=== PATIENT | female | born 1955 | race African-American/Black ===

== ENCOUNTER 2016-11-24 17:13 | Inpatient (IN) ==
[2016-11-24] MEDS ORDERED: NITROGLYCERIN 2% OINT 1 INCH/GM PACK TOP STA (17:28)
[2016-11-24] MEDS ORDERED: methylPREDNISolone SOD SUC 40 MG/1 ML VIAL IV STA (17:28)
[2016-11-24] MEDS ORDERED: ALBUTEROL 2.5 MG/3 ML NEB RESP TX STA (17:28)
[2016-11-24] MEDS ORDERED: ALBUTEROL/IPRATROPIUM 3 ML NEB RESP TX STA (17:28)
[2016-11-24] MEDS ORDERED: hydrALAZINE 20 MG/1 ML VIAL IV STA (17:30)
[2016-11-24 17:44] LABS: Basophils % 0.5 % (0.0-0.8); Eosinophils % 0.5 % (0.00-10.9); Hematocrit 50.3 VOL% (35.7-47.0); Hemoglobin 17.4 GM/DL (12.0-16.0); Immature Granulocytes % 0.2 %; Immature Granulocytes Absolute 0.01 #; Lymphocytes # 3.6 10*3/uL (1.4-4.0); Lymphocytes % 58.2 % (21.3-54.2); Mean Corpuscular HGB Conc 34.6 GM/DL (32-36); Mean Corpuscular Hemoglobin 34 PG (27-34); Mean Corpuscular Volume 97.5 FL (87-102); Mean Platelet Volume 11.7 FL (9.6-12.0); Monocytes # 0.5 10*3/uL (0.11-0.8); Neutrophils % 32.6 % (38.7-73.9); Platelet Count 207 T/CUMM (130-400); Red Blood Count 5.16 MC/CUMM (3.8-5.5); Red Cell Distribution Width 15.3 % (9.3-17.3); White Blood Count 6.3 T/CUMM (4-12)
[2016-11-24] MEDS ORDERED: methylPREDNISolone SOD SUC 125 MG/2 ML VIAL ONE (17:47)
[2016-11-24] MEDS ORDERED: NITROGLYCERIN 2% OINT 1 INCH/GM PACK TOP ONE (17:47)
[2016-11-24] MEDS ORDERED: hydrALAZINE 20 MG/1 ML VIAL ONE (17:47)
[2016-11-24 18:05] LABS: Lymphocytes 64 % (20-55); Platelet Estimate Adequate; Poikilocytosis Slight; Segmented Neutrophils 32 % (50-85); Target Cells Slight; Total Cells Counted 100
[2016-11-24 18:06] LABS: Atypical Lymphocytes Few
[2016-11-24 18:16] LABS: Osmolality,Calculated 278.4 MOS/KG (273-304); Potassium 3.9 MMOL/L (3.5-5.1)
--- NOTE | 2016-11-24 18:19 | XRay Report ---
Exam: XR chest 1V portable Indication: Cardiomegaly Shortness of breath Comparison study: Prior chest radiograph 04/08/2013 Findings: Cardiac silhouette is enlarged, similar prior. Mediastinal contours appear similar with mild prominence of the perihilar regions bilaterally which may represent atelectasis/scarring or prominent vasculature. There is no focal consolidation, pneumothorax or pleural effusion identified. Impression: Similar mild cardiomegaly and perihilar interstitial prominence may represent atelectasis/scarring. Underlying infiltrates or mild interstitial edema are not excluded. PROCEDURE INTERPRETED AT [facility] DEPARTMENT OF RADIOLOGY Final Report Signed by: Arnold Nathan
[2016-11-24 18:20] LABS: Troponin I Only 0.17 NG/ML (0.00-0.045)
[2016-11-24] MEDS ORDERED: FUROSEMIDE 40 MG/4 ML VIAL IV STA (18:49)
[2016-11-24] MEDS ORDERED: FUROSEMIDE 40 MG/4 ML VIAL ONE (18:59)
[2016-11-24 19:17] LABS: Apearance,Urine Slightly Hazy (Clear); Bacteria,Urine Occasional /HPF (Few); Bilirubin,Urine Small mg/dL (Negative); Blood, Urine Negative (Negative); Glucose,Urine (UA) Negative (Negative); Hyaline Casts,Urine 5 /LPF (0-3); Ketones,Urine 5 mg/dL (Negative); Mucus,Urine Few /LPF (Occasional); Nitrite,Urine Negative (Negative); Protein,Urine 100 MG/DL; RBC,Urine 1 /HPF (0-4); Squamous Epithelial Cell,Urine Occasional /HPF (0-10); Urine Color Amber (Yellow); Urine Specific Gravity 1.032 (1.001-1.035); WBC,Urine 1 /HPF (0-6)
[2016-11-24] MEDS ORDERED: ASPIRIN 325 MG TABLET PO STA (19:17)
[2016-11-24] MEDS ORDERED: ENOXAPARIN 80 MG/0.8 ML SYRINGE SUBCUT STA (19:17)
--- NOTE | 2016-11-24 19:49 | Emergency Department Note ---
IMarcial Brooke, am scribing for, and in the presence of, Bob Goodrich MD 17:30. IJoleen Kevin Lee, MD, personally performed the services described in this documentation, ascribed by Katrin Ceja in my presence, and it is both accurate and complete 917 . Arrival - Arrival Chief Complaint: Upper Respiratory Stated Complaint: cold,chest, sinus with fever ED Nursing Triage Note: c/o cough and congestion onset 4 days ago. sometimes productive Mode of Arrival: Ambulatory Limitations: No Limitations Source: Patient, RN Notes Reviewed Time Seen by Provider: 11/24/16 17:23 - History of Present Illness HPI Narrative: Patient is a 61 year old female who presents to the ED with c/o cough, congestion, and shortness of breath. Patient says these symptoms started five days ago but that it worsened four days ago. Patient's cough is productive. She says she has had fever. Her temperature during triage was 96.3. She says she has been nauseated and gagging but has not vomited. Patient also complains of having dysuria and says she thinks she has a urinary tract infection. Patient has PMHx of HTN, asthma, and arthritis. She is a smoker. Onset (ago): day(s) (5) Allergies/Adverse Reactions: Allergies Allergy/AdvReac Type Severity Reaction Status Date / Time No Known Allergies Allergy Unverified 11/06/14 11:20 Home Medications: Home Medications Medication Instructions Recorded Confirmed Type Budesonide/Formoterol Fumarate 1 inhaler INH BID 11/06/14 11/24/16 History [Symbicort 80-4.5 Mcg Inhaler] Montelukast Tab [Singulair Tab] 10 mg PO BEDTIME 11/06/14 11/24/16 History Albuterol Sulfate [Albuterol Neb] 2.5 mg INH BID 11/24/16 11/24/16 History Linaclotide [Linzess] 145 mcg PO DAILY PRN 11/24/16 11/24/16 History Unknown Neb In Yellow Box 0 ml INH BID 11/24/16 11/24/16 History Review of System - Review of System 12 point system: reviewed and no additional remarkable complaints except as stated - Review of System Constitutional: Present: fever Head/Ears/Nose/Throat: Present: other (congestion) Respiratory: Present: cough (shortness of breath), other (shortness of breaht). Absent: respiratory distress Gastrointestinal: Present: nausea. Absent: vomiting (gagging) Genitourinary female: Present: dysuria Skin: Absent: rash Medical,Surgical,& Family Hx - Medical History Respiratory: History of: Asthma Gastrointestinal: History of: GI Problems (constipation) Musculoskeletal: History of: Musculoskeletal Problems (arthritis) - Social History Smoking Status: Current every day smoker Frequency of Alcohol Use: None Type of Drug Use: None Exam Vital Signs: Vital Signs Temperature 96.3 F L 11/24/16 17:18 Pulse Rate 80 11/24/16 18:45 Respiratory Rate 17 11/24/16 18:45 Blood Pressure 150/95 11/24/16 18:45 O2 Sat by Pulse Oximetry 93 L 11/24/16 18:45 - General General appearance: alert, in no apparent distress - Head Head exam: Present: atraumatic, normocephalic - Eye Eye exam: Present: normal appearance, PERRL, EOMI - ENT ENT exam: Present: normal exam - Neck Neck exam: Present: normal inspection - Chest Chest inspection: Present: normal inspection, symmetric chest wall rise - Respiratory Respiratory exam: Present: rhonchi, wheezes - Cardiovascular Cardiovascular exam: Present: regular rate, normal rhythm, normal heart sounds - Abdominal Exam Abdominal exam: Present: soft, normal bowel sounds. Absent: distention, tenderness - Extremities Exam Extremities exam: Present: normal inspection - Back Exam Back exam: Present: normal inspection - Neurological Exam Neurological exam: Present: alert, oriented X3 - Psychiatric Psychiatric exam: Present: normal affect, normal mood - Skin Skin exam: Present: warm, dry, intact, normal color Course Course Narrative: will admit to hospitalist for further eval and treatment of probable htn urgency vs underlying COPD exacerbation with elevated cardiac enzymes Results - Labs CBC & BMP: 11/24/16 17:33 11/24/16 17:33 Lab Results: I have reviewed the patients labs Labs: Laboratory Tests 11/24/16 17:33 WBC 6.3 RBC 5.16 Hgb 17.4 H Hct 50.3 H MCV 97.5 MCH 34 MCHC 34.6 RDW 15.3 Plt Count 207 MPV 11.7 Neut % (Auto) 32.6 L Lymph % (Auto) 58.2 H [place] % (Auto) 8.0 Eos % (Auto) 0.5 Baso % (Auto) 0.5 Neut # (Auto) 2.0 Lymph # (Auto) 3.6 [place] # (Auto) 0.5 Eos # (Auto) 0.0 Baso # (Auto) 0.0 Total Counted Pending Immature Gran % 0.2 Nucleated RBC % 0.0 Immature Gran # 0.01 Nucleated RBCs # 0.00 Immature Plt Fraction 0.0 Microbiology 11/24/16 17:56 Throat Group A Streptococcus Rapid Screen - Final Negative for Grp A Strep Ag Laboratory Tests 11/24/16 17:33 Total Counted 100 Segmented Neutrophils 32 L Lymphocytes 64 H Monocytes 4 Atypical Lymphocytes Few Platelet Estimate Adequate Poikilocytosis Slight Target Cells Slight Laboratory Tests 11/24/16 17:33 Sodium 140 Potassium 3.9 Chloride 104 Carbon Dioxide 32 Anion Gap 7.9 BUN 9 Creatinine 0.90 GFR Calculation 91 BUN/Creatinine Ratio 10.00 Glucose 114 H Calculated Osmolality 278.4 Calcium 9.0 Troponin I 0.170 H Microbiology 11/24/16 18:29 Nasal Aspirate Influenza Types A,B Antigen (EUN) - Final Negative for Influenza A Ag Negative for Influenza B Ag Laboratory Tests 11/24/16 17:33 B-Natriuretic Peptide 12 Laboratory Tests 11/24/16 18:29 Urine Color Clemencia Urine Appearance Slightly hazy Urine pH 5.0 Ur Specific [place] 1.032 Urine Protein 100 Urine Glucose (UA) Negative Urine Ketones 5 Urine Blood Negative Urine Nitrate Negative Urine Bilirubin Small H Urine Urobilinogen 2.0 H Urine Leukocytes Negative Urine RBC 1 Urine WBC 1 Ur Squamous Epith Cells Occasional Urine Bacteria Occasional Hyaline Casts 5 Urine Mucus Few Ur Culture Indicated? Not indicated - Diagnostic Findings Procedure: Chest x-ray: report reviewed by me (Similar mild cardiomegaly and perihilar interstitial prominence may represent atelectasis/scarring. Underlying infiltrates or mild interstitial edema are not excluded.) Disposition Clinical Impression: NSTEMI (non-ST elevated myocardial infarction), Hypertensive urgency, COPD ( chronic obstructive pulmonary disease) Case discussed with: patient Disposition: Still a Patient Condition: Guarded
--- NOTE | 2016-11-24 19:57 | Hospitalist History & Physical ---
<Sarah Paez - Last Filed: 11/25/16 04:18> Assessment and Plan - Time spent with patient Time spent with patient: Greater than 30 minutes (1) COPD with exacerbation Status: Acute Assessment and plan: Admit to hospitalist services. Solumedrol 125 mg IV given in ED. Continue with solumedrol 60 mg IV Q8 hours. Levoquin 750 mg IV Q24 hours. DuoNebs Q4 hours. Continue home dose of Singulair. O2 per unit protocol. Repeat CBC in am. Current Visit: Yes (2) Sepsis Status: Acute Assessment and plan: Initially in ED, temp 96.3, HR 94, and RR 22 with possible pulmonary infection on CXR. Questionable if there is a cardiac involvement with some amount of CHF. BP is stable. Hold IV fluids for now. Antibiotics as above for COPD exacerbation. Blood cultures drawn in ED, follow. Repeat CBC in am. Current Visit: Yes (3) SOB (shortness of breath) Status: Acute Assessment and plan: As above for COPD exacerbation. Current Visit: Yes (4) Elevated troponin I level Status: Acute Assessment and plan: Initial troponin in ED was 0.170. This is likely due to severely elevated BP on presentation of 196/113. BNP was 12. Still there is concern for cardiac involvement as there appeared to be moderate JVD and ERP notes NSTEMI in his clinical impression. Obtain serial troponins, follow. Repeat BNP, BMP and Mag in am. Control BP. Place on telemetry. Echo. Lasix 40 mg IV x 1 given in ED. No additional lasix for now until confirmation for need. Daily weight Strict I/Os. Cardiac Diet. Cardiology consult. Current Visit: Yes (5) Hypertension Status: Acute Assessment and plan: Patient reports that she was taken off all BP meds 4-5 years ago for recurring episodes of hypotension. Initial BP in the ED was 196/113. Hydralazine 10 mg IV was given in ED. Continue Hydralazine 10 mg IV Q6 PRN for BP>140/90. Monitor. Current Visit: Yes (6) DVT prophylaxis Status: Acute Assessment and plan: Lovenox 40 mg SQ daily. Current Visit: Yes History of Present Illness Chief complaint: SOB, congestion, cough History of present illness: Ms. Muhammad is a 61 year old female with a past medical history of asthma, COPD, HTN, and chronic constipation who presented to the ED today with complaints of shortness of breath, head and chest congestion, wheezing, coughing, headache, throat discomfort and subjective feelings of fever x 7 days that has worsened over the last 4 days. She also complains of nausea and sweating but denies chest pain, and chills. She is a 1/2 ppd smoker for about 40 years. In the ED, her initial BP was 196/113 and her O2 sats were 92% on RA. Her labs were unremarkable except for a slight bump in her troponin to 0.170. Her BNP was 12. CXR showed mild cardiomegaly consistent with previous CXR and perihilar interstitial prominence that may represent atelectasis/scarring. Underlying infiltrates or mild interstitial edema not excluded. Currently she is sitting up on side of bed, awake, alert and oriented and has had some relief of symptoms with the 2 breathing treatments and lasix received in the ED. Hospitalist services were consulted, and the patient will be admitted to observation for further evaluation and treatment. Home Medications Medication Instructions Recorded Confirmed Type Budesonide/Formoterol Fumarate 1 inhaler INH BID 11/06/14 11/24/16 History [Symbicort 80-4.5 Mcg Inhaler] Montelukast Tab [Singulair Tab] 10 mg PO BEDTIME 11/06/14 11/24/16 History Albuterol Sulfate [Albuterol Neb] 2.5 mg INH BID 11/24/16 11/24/16 History Linaclotide [Linzess] 145 mcg PO DAILY PRN 11/24/16 11/24/16 History Unknown Neb In Yellow Box 0 ml INH BID 11/24/16 11/24/16 History Allergies Allergy/AdvReac Type Severity Reaction Status Date / Time No Known Allergies Allergy Unverified 11/06/14 11:20 Medical,Surgical,& Family Hx - Medical History Cardio: History of: Hypertension No history of: CHF, CO, Valvular Heart Disease Psychological: No history of: Anxiety Disorders, Depression Neurology: No history of: Cerebrovascular Accident, Seizures, TIA HEENT: No history of: Ear Problem, Eye Problem Endocrine: No history of: Diabetes Mellitus (IDDM), Diabetes Mellitus (NIDDM), Thyroid Disorder Rheumatology: No history of;: Rheumatoid Arthritis Respiratory: History of: Asthma, COPD Renal: No history of: Renal Problems Genitourinary: No history of: Kidney Stones, Recurring Urinary Tract Infections, Problems Gastrointestinal: History of: GI Problems (constipation) No history of: GERD Musculoskeletal: History of: Musculoskeletal Problems (arthritis; ventral hernia ) No history of: Back/Neck Problems Hematology: No history of: Anemia, Bleeding Problems, Clotting Problems, Sickle Cell Disease Reproductive: History of: Ovarian Cysts, Reproductive Problems (fibroid tumors) Other: No history of: Cancer - Surgical History Cardiac Surgeries: Patient Denies: Cardiac Catheterization, Cardiac Surgery HEENT Surgeries: Patient denies: Eye Surgery, Thyroid Surgery, Tonsilectomy & Adenoidectomy Abdominal Surgeries: Patient denies: Cholecystectomy, Hernia Repair Reproductive Surgeries: Surgical HX of;: Gynecologic Surgery (fibroid tumor removal and ovarian cyst removal) Orthopedic Surgeries: Patient denies;: Orthopedic Surgery - Family History Family History: Reports;: Family Heart Disease, Family Hypertension - Social History Smoking Status: Current every day smoker (1/2 ppd) Have you smoked in the last 12 months: Yes Time spent discussing smoking cessation with patient: 3 to 10 minutes (3 minutes were spent discussing smoking cessation with the patient.) Frequency of Alcohol Use: Rarely Type of Drug Use: None Marital Status: Lives With:: Alone Functional capacity: independent ambulation - Constitutional Constitutional: Present: fever(s). Absent: chills, lethargy, malaise - EENT Eyes: Absent: blurry vision, diplopia, loss of vision Ears: Absent: decreased hearing, ear discharge Nose, mouth and throat: Present: headache(s), nasal congestion, sore throat, other (Hoarseness) - Cardiovascular Cardiovascular: Present: diaphoresis, dyspnea, dyspnea on exertion, orthopnea. Absent: chest pain at rest, chest pain with activity, edema, palpitations - Respiratory Respiratory: Present: cough, dyspnea, dyspnea on exertion, wheezing - Gastrointestinal Gastrointestinal: Present: constipation, nausea. Absent: abdominal pain, diarrhea, vomiting - Genitourinary Genitourinary: Absent: dysuria, urinary frequency - Musculoskeletal Musculoskeletal: Absent: arthralgias, joint swelling, muscle weakness, myalgias - Neurological Neurological: Absent: confusion, dizziness, numbness, paresthesias, syncope - Psychiatric Psychiatric: Absent: anxiety, confusion, depression - Endocrine Endocrine: Absent: cold intolerance, polydipsia, polyphagia, polyuria - Hematologic/Lymphatic Hematologic/Lymphatic: Absent: easy bleeding, easy bruising Exam - Constitutional Vitals: Period Temp Pulse Resp BP Sys/Gastelum Pulse Ox Last 24 Hr 96.3 F-96.3 F 75-94 15- 125-196/90-113 92-99 Exam: Constitutional System: Afebrile, but low temp. Awake, alert and oriented x 3. Mild distress. No tremulousness. Head: Normocephalic, atraumatic. Ears, Nose and Throat System: No pain or tenderness. No epistaxis or discharge Eyes System: Pupils equal, round, and reactive. Extraocular muscles intact. Neck: Supple, without adenopathy, Moderate jugular venous distention present. No thyromegaly, neck mass, or prior surgery apparent. Respiratory System: Wheezing, rhonchi and cough noted. Cardiovascular System: Heart with regular rate and rhythm. No murmur. GI System: Abdomen soft, nontender. Normo active bowel sounds present. Musculoskeletal System: Limbs with no pedal edema. Full distal pulses. Normal capillary refill. Neurological System: No discernable sensory deficit. No aphasia Psychiatric System: Conversation is rational Results - Labs CBC & BMP: 11/25/16 02:09 11/25/16 02:10 Lab Results: I have reviewed the past 24 hour labs <Neeraj Shore - Last Filed: 11/25/16 05:43> Assessment and Plan (1) COPD with exacerbation Status: Acute Assessment and plan: Addendum: Neeraj Shore MD: I saw and examined the patient in conjunction with nurse practitioner Sarah Bose. The patient is being admitted mainly for COPD exacerbation. On exam she does have significant wheezing. She has a history of COPD and uses inhalers, nebulizers daily. She has been started on standard COPD exacerbation regimen. Troponin is mildly elevated and cardiology has been consulted. 2D echo has been ordered. Her O2 saturation dropped to 87 while we were examining her after she had returned from the restroom. Her sat at rest was stable on 2 L. Current Visit: Yes History of Present Illness History of present illness: Ms. Muhammad is a 61 year old female Exam - Constitutional Vitals: Period Temp Pulse Resp BP Sys/Gastelum Pulse Ox Last 24 Hr 96.3 F-98.1 F 70-96 15-22 125-196/76-113 88-99 Results - Labs CBC & BMP: 11/25/16 02:09 11/25/16 02:10
[2016-11-24] MEDS ORDERED: ENOXAPARIN 80 MG/0.8 ML SYRINGE SUBCUT ONE (20:06)
[2016-11-24] MEDS ORDERED: ASPIRIN 325 MG TABLET ONE (20:07)
[2016-11-24] MEDS ORDERED: BISACODYL 5 MG TABLET PO PRN (21:34)
[2016-11-24] MEDS ORDERED: ONDANSETRON 4 MG/2 ML VIAL IV PRN (21:34)
[2016-11-24] MEDS ORDERED: ACETAMINOPHEN 325 MG TABLET PO PRN (21:34)
[2016-11-25 02:24] LABS: Basophils % 0.3 % (0.0-0.8); Hematocrit 45.4 VOL% (35.7-47.0); Hemoglobin 15.9 GM/DL (12.0-16.0); Immature Granulocytes % 0.3 %; Immature Granulocytes Absolute 0.01 #; Lymphocytes # 0.7 10*3/uL (1.4-4.0); Lymphocytes % 18.3 % (21.3-54.2); Mean Corpuscular Hemoglobin 34 PG (27-34); Mean Platelet Volume 11.8 FL (9.6-12.0); Neutrophils # 3.1 10*3/uL (1.4-7.4); Neutrophils % 80.1 % (38.7-73.9); Platelet Count 192 T/CUMM (130-400); Red Blood Count 4.73 MC/CUMM (3.8-5.5); Red Cell Distribution Width 14.9 % (9.3-17.3); White Blood Count 3.9 T/CUMM (4-12)
[2016-11-25 03:05] LABS: Magnesium 1.6 MG/DL (1.8-2.4); Osmolality,Calculated 287.3 MOS/KG (273-304); Potassium 3.3 MMOL/L (3.5-5.1); Risk Ratio 3.39; Thyroid Stimulating Hormone 0.261 uIU/ml (0.358-3.74)
[2016-11-25] MEDS ORDERED: LINACLOTIDE 145 MCG CAPSULE PO PRN (04:22)
[2016-11-25] MEDS ORDERED: hydrALAZINE 20 MG/1 ML VIAL IV PRN (04:32)
[2016-11-25] MEDS ORDERED: LEVOFLOXACIN INJ 750 MG in PREMIX 1 EACH IV SCH (05:00)
[2016-11-25 05:30] LABS: Band Neutrophils 1 % (0-10); Giant Platelets Few; Hypochromasia 1+; Lymphocytes 14 % (20-55); Ovalocytes Slight; Platelet Estimate Adequate; Segmented Neutrophils 83 % (50-85); Total Cells Counted 100
[2016-11-25] MEDS: methylPREDNISolone SOD SUC 125 MG/2 ML VIAL IV SCH ×2 (05:44→13:19)
[2016-11-25 06:18] LABS: Calcium 8.9 MG/DL (8.5-10.1); Magnesium 1.8 MG/DL (1.8-2.4); Osmolality,Calculated 278.5 MOS/KG (273-304); Potassium 3.3 MMOL/L (3.5-5.1)
[2016-11-25] MEDS: ALBUTEROL/IPRATROPIUM 3 ML NEB RESP TX SCH ×2 (07:05→11:00)
--- NOTE | 2016-11-25 08:52 | EKG Report ---
Stationary ECG Study [facility] Test Date: 11/25/2016 8:43:47 AM Pat Name: BAHMAN GUTIERREZ Department: Room: 287 Gender: F Habilitation Specialist: YANI : [id number] Requested by: Bob Canada Order Number: [id number] Reading MD: DARION WYATT Intervals [place] Rate: 67 P: 62 VT: 215 QRS: -23 QRSD: 84 T: 2 QT: 426 QTc: 441 Interpretive Statements SINUS RHYTHM WITH PROLONGED VT INTERVAL BORDERLINE LEFT AXIS DEVIATION Electronically Signed On 11-25-16 18:52:18 CDT by DARION WYATT [email or web address]
[2016-11-25] MEDS ORDERED: BUDESONIDE/FORMOTEROL 80-4.5 INHALER 6.9 GM INH SCH (09:00)
[2016-11-25] MEDS ORDERED: PANTOPRAZOLE 40 MG TABLET PO SCH (09:00)
--- NOTE | 2016-11-25 09:50 | Cardiology Consult Note ---
Assessment and Plan - Time spent with patient Time spent with patient: Greater than 30 minutes (1) Acute exacerbation of COPD with asthma Status: Acute Assessment and plan: See plan of care listed below. Current Visit: Yes (2) Elevated troponin I level Status: Acute Assessment and plan: See plan of care listed below. Current Visit: Yes (3) Hypertension Status: Chronic Assessment and plan: See plan of care listed below. Current Visit: Yes (4) SOB (shortness of breath) Status: Acute Assessment and plan: See plan of care listed below. Current Visit: Yes (5) Tobacco abuse Status: Chronic Assessment and plan: See plan of care listed below. 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 Galvan PCP: Dr. Sherwin Sabillon Ms. Muhammad is a 61 year old female without known history of coronary artery disease, not routinely followed by cardiology. Patient has cardiac risk factors significant for hypertension, advanced age, current everyday smoker and sedentary lifestyle. Patient has a past medical history of asthma and COPD. She reports that she had a cardiac stress test performed around 2005. She cannot remember if this was performed at our facility or at [facility], [place]. Unable to locate this report in our EMR. Patient has never undergone cardiac catheterization. Patient presented to [facility] yesterday evening with complaints of sinus drainage, chest congestion and fever. Patient reports that she has been feeling under the weather for the past week. She confirms cough, fevers/chills, shortness of breath, diaphoresis, malaise, fatigue and wheezing. She denies any associated chest pain, heaviness or tightness. She does have a history of COPD and has chronic dyspnea. She reports that she attempted several breathing treatments at home. However, her condition did not improve. Yesterday afternoon she continued to wheeze and felt that she needs to be further evaluated in the emergency department as she was not getting any better. Upon arrival to the emergency department, her troponins were trivial. Again, patient was without complaints of chest pain, heaviness and tightness. Blood pressure upon arrival to ED was 196/113. Patient was admitted to hospital medicine's service. Housed in the telemetry unit. Cardiology was consulted to further evaluate her trivial elevation in troponin. Patient was seen and examined on the telemetry unit. She is feeling better this morning and without complaints. She continues to deny chest pain, heaviness and tightness. Cardiac biomarkers trivial, flat in nature, 0.170, 0.129 and 0.119. EKG benign. Without anginal symptoms. Chest x-ray reveals mild cardiomegaly. Underlying infiltrates could not be excluded. BNP stable. Suspect that trivial troponin rise is related to her underlying acute COPD exacerbation as well as her severely uncontrolled hypertension. Blood pressure 196/113 at admission. At this point, we will optimize patient's blood pressure and treat COPD exacerbation. I have added aspirin to patient's medication regimen. I have also added CPK and CK-MB to her lab draw. Echocardiogram results are pending. These will be reviewed. We can consider further cardiac workup once her acute illnesses improve, if needed. I will further discuss this with Dr. Ashwini Galvan and await her additional recommendations. IMPRESSION AND PLAN 1. TRIVIAL ELEVATION IN TROPONIN - Troponin only minimally elevated. Flat in nature. EKG benign. Without anginal symptoms. Suspect that trivial troponin rise is related to her underlying acute COPD exacerbation (oxygen supply and demand mismatch) as well as her severely uncontrolled hypertension. Blood pressure 196/113 at admission. At this point, we will optimize patient's blood pressure and treat COPD exacerbation. I have added aspirin to patient's medication regimen. I have also added CPK and CK-MB to her lab draw. Echocardiogram results are pending. These will be reviewed. We can consider further cardiac workup once her acute illnesses improve if needed. I will further discuss this with Dr. Ashwini Galvan and await her additional recommendations. 2. ACUTE COPD EXACERBATION - Continue supplemental oxygen, steroids, breathing treatments and antibiotics. 3. HYPERTENSION - I will add Bystolic to patient's medication regimen as this is a cardioselective beta-geovany. This will most likely have no respiratory side effects. Can consider adding MELANIA or ARB if blood pressure remains uncontrolled. 4. TOBACCO ABUSE - Discussed the importance of smoking cessation. 5. SHORTNESS OF BREATH - Suspect that this is related to her acute COPD exacerbation. BNP 18. Echocardiogram has been ordered today. These results will be reviewed. If patient's dyspnea continues after COPD exacerbation resolves can consider further cardiac workup at that time. CC: Scott Garner MD - Home Medications and Allergies Home Medications: Home Medications Medication Instructions Recorded Confirmed Type Budesonide/Formoterol Fumarate 1 inhaler INH BID 11/06/14 11/24/16 History [Symbicort 80-4.5 Mcg Inhaler] Montelukast Tab [Singulair Tab] 10 mg PO BEDTIME 11/06/14 11/24/16 History Albuterol Sulfate [Albuterol Neb] 2.5 mg INH BID 11/24/16 11/24/16 History Linaclotide [Linzess] 145 mcg PO DAILY PRN 11/24/16 11/24/16 History Unknown Neb In Yellow Box 0 ml INH BID 11/24/16 11/24/16 History Allergies/Adverse Reactions: Allergies Allergy/AdvReac Type Severity Reaction Status Date / Time No Known Allergies Allergy Unverified 11/06/14 11:20 - Constitutional Constitutional: Present: as per HPI, chills, fatigue, fever(s), lethargy, malaise, weakness. Absent: frequent falls, headache(s) - Cardiovascular Cardiovascular: Present: as per HPI, diaphoresis, dyspnea, dyspnea on exertion. Absent: chest pain at rest, chest pain with activity, claudication, edema, radiating jaw, neck or arm pain, lightheadedness, orthopnea, palpitations, PND - Respiratory Respiratory: Present: as per HPI, cough, dyspnea, dyspnea on exertion, wheezing , change in phlegm color. Absent: hemoptysis, snoring, pain on inspiration - Gastrointestinal Gastrointestinal: Present: as per HPI. Absent: change in bowel habits, coffee ground emesis, cramping, diarrhea, dyspepsia, dysphagia, heartburn, melena, nausea, vomiting - Neurological Neurological: Present: as per HPI. Absent: abnormal gait, abnormal speech, behavioral changes, disequilibrium, dizziness, numbness, syncope - Psychiatric Psychiatric: Present: as per HPI. Absent: anxiety, confusion, panic attacks Medical,Surgical,& Family Hx - Medical History Cardio: History of: Hypertension No history of: CAD Respiratory: History of: Asthma, COPD Gastrointestinal: History of: GI Problems (constipation) Musculoskeletal: History of: Musculoskeletal Problems (arthritis; ventral hernia ) Reproductive: History of: Ovarian Cysts, Reproductive Problems (fibroid tumors) - Surgical History Reproductive Surgeries: Surgical HX of;: Gynecologic Surgery (fibroid tumor removal and ovarian cyst removal) - Family History Family History: Reports;: Family Cancer (stomach, breast, and brain), Family Diabetes, Family Heart Disease, Family Hypertension - Social History Smoking Status: Current every day smoker (1/2 ppd) Frequency of Alcohol Use: Rarely Type of Drug Use: None Functional capacity: independent ambulation Physical Examination Vital Signs Temp Pulse Resp BP Pulse Ox 96.3 F L 94 H 22 196/113 92 L 11/24/16 17:18 11/24/16 17:18 11/24/16 17:18 11/24/16 17:18 11/24/16 17:18 Exam: General: Appears well with no apparent distress. Pleasant and cooperative. Appears comfortable. HEENT: PERRL, normocephalic, atraumatic. Mucous membranes moist. No jaundice noted. Conjunctiva moist and clear, sclerae anicteric Neck: No JVD/HJR, no thyromegaly or lymphadenopathy noted. No carotid bruit appreciated Cardiac: Regular rate and rhythm. No murmur rub or gallop. Lungs: Expiratory wheezing. Oxygen via nasal cannula Abdomen: Soft, bowel sounds normoactive. Nontender and nondistended. No abdominal bruit or thrill noted. No masses noted. Extremities: No clubbing, cyanosis noted. No edema noted. Upper extremity pulses 2+. Lower extremity pulses 2+. Capillary refill less than 3 seconds. Skin: No unusual lesions or rashes. No skin breakdown appreciated. Neuro: Awake, alert and oriented 3. Moves all extremities well without hemiparesis or paralysis. No essential tremor is appreciated. Result/EKG - Labs CBC & BMP: 11/25/16 02:09 11/25/16 05:31 Lab Results: I have reviewed the past 24 hour labs Labs: Laboratory Results - last 24 hr 11/24/16 11/24/16 11/24/16 17:33 17:33 17:33 WBC 6.3 RBC 5.16 Hgb 17.4 H Hct 50.3 H MCV 97.5 MCH 34 MCHC 34.6 RDW 15.3 Plt Count 207 MPV 11.7 Neut % (Auto) 32.6 L Lymph % (Auto) 58.2 H [place] % (Auto) 8.0 Eos % (Auto) 0.5 Baso % (Auto) 0.5 Neut # (Auto) 2.0 Lymph # (Auto) 3.6 [place] # (Auto) 0.5 Eos # (Auto) 0.0 Baso # (Auto) 0.0 Total Counted 100 Immature Gran % 0.2 Nucleated RBC % 0.0 Immature Gran # 0.01 Segmented Neutrophils 32 L Band Neutrophils Lymphocytes 64 H Monocytes 4 Basophils Nucleated RBCs # 0.00 Atypical Lymphocytes Few Platelet Estimate Adequate Giant Platelets Immature Plt Fraction 0.0 Hypochromasia Poikilocytosis Slight Target Cells Slight Ovalocytes Sodium 140 Potassium 3.9 Chloride 104 Carbon Dioxide 32 Anion Gap 7.9 BUN 9 Creatinine 0.90 GFR Calculation 91 BUN/Creatinine Ratio 10.00 Glucose 114 H Hemoglobin A1c Calculated Osmolality 278.4 Calcium 9.0 Magnesium Troponin I 0.170 H B-Natriuretic Peptide 12 Triglycerides Cholesterol LDL Cholesterol VLDL Cholesterol HDL Cholesterol Heart Disease Risk Ratio Free T4 TSH 3rd Generation Urine Color Urine Appearance Urine pH Ur Specific [place] Urine Protein Urine Glucose (UA) Urine Ketones Urine Blood Urine Nitrate Urine Bilirubin Urine Urobilinogen Urine Leukocytes Urine RBC Urine WBC Ur Squamous Epith Cells Urine Bacteria Hyaline Casts Urine Mucus Ur Culture Indicated? 11/24/16 11/25/16 11/25/16 18:29 02:09 02:09 WBC 3.9 L D RBC 4.73 Hgb 15.9 Hct 45.4 MCV 96.0 MCH 34 MCHC 35.0 RDW 14.9 Plt Count 192 MPV 11.8 Neut % (Auto) 80.1 H Lymph % (Auto) 18.3 L [place] % (Auto) 1.0 L Eos % (Auto) 0.0 Baso % (Auto) 0.3 Neut # (Auto) 3.1 Lymph # (Auto) 0.7 L [place] # (Auto) 0.0 L Eos # (Auto) 0.0 Baso # (Auto) 0.0 Total Counted 100 Immature Gran % 0.3 Nucleated RBC % 0.0 Immature Gran # 0.01 Segmented Neutrophils 83 Band Neutrophils 1 Lymphocytes 14 L Monocytes 1 L Basophils 1.0 H Nucleated RBCs # 0.00 Atypical Lymphocytes Platelet Estimate Adequate Giant Platelets Few Immature Plt Fraction 0.0 Hypochromasia 1+ Poikilocytosis Target Cells Ovalocytes Slight Sodium Potassium Chloride Carbon Dioxide Anion Gap BUN Creatinine GFR Calculation BUN/Creatinine Ratio Glucose Hemoglobin A1c Calculated Osmolality Calcium Magnesium Troponin I B-Natriuretic Peptide 18 Triglycerides Cholesterol LDL Cholesterol VLDL Cholesterol HDL Cholesterol Heart Disease Risk Ratio Free T4 TSH 3rd Generation Urine Color Clemencia Urine Appearance Slightly hazy Urine pH 5.0 Ur Specific [place] 1.032 Urine Protein 100 Urine Glucose (UA) Negative Urine Ketones 5 Urine Blood Negative Urine Nitrate Negative Urine Bilirubin Small H Urine Urobilinogen 2.0 H Urine Leukocytes Negative Urine RBC 1 Urine WBC 1 Ur Squamous Epith Cells Occasional Urine Bacteria Occasional Hyaline Casts 5 Urine Mucus Few Ur Culture Indicated? Not indicated 11/25/16 11/25/16 11/25/16 02:09 02:09 02:10 WBC RBC Hgb Hct MCV MCH MCHC RDW Plt Count MPV Neut % (Auto) Lymph % (Auto) [place] % (Auto) Eos % (Auto) Baso % (Auto) Neut # (Auto) Lymph # (Auto) [place] # (Auto) Eos # (Auto) Baso # (Auto) Total Counted Immature Gran % Nucleated RBC % Immature Gran # Segmented Neutrophils Band Neutrophils Lymphocytes Monocytes Basophils Nucleated RBCs # Atypical Lymphocytes Platelet Estimate Giant Platelets Immature Plt Fraction Hypochromasia Poikilocytosis Target Cells Ovalocytes Sodium 141 Potassium 3.3 L Chloride 100 Carbon Dioxide 33 H Anion Gap 11.3 BUN 11 Creatinine 1.00 GFR Calculation 79 BUN/Creatinine Ratio 11.00 Glucose 247 H Hemoglobin A1c 5.5 Calculated Osmolality 287.3 Calcium 9.0 Magnesium 1.6 L Troponin I 0.129 H D B-Natriuretic Peptide Triglycerides 50 Cholesterol 183 LDL Cholesterol 118.0 VLDL Cholesterol 10.0 HDL Cholesterol 54 Heart Disease Risk Ratio 3.39 Free T4 TSH 3rd Generation 0.261 L Urine Color Urine Appearance Urine pH Ur Specific [place] Urine Protein Urine Glucose (UA) Urine Ketones Urine Blood Urine Nitrate Urine Bilirubin Urine Urobilinogen Urine Leukocytes Urine RBC Urine WBC Ur Squamous Epith Cells Urine Bacteria Hyaline Casts Urine Mucus Ur Culture Indicated? 11/25/16 11/25/16 11/25/16 02:10 05:31 05:31 WBC RBC Hgb Hct MCV MCH MCHC RDW Plt Count MPV Neut % (Auto) Lymph % (Auto) [place] % (Auto) Eos % (Auto) Baso % (Auto) Neut # (Auto) Lymph # (Auto) [place] # (Auto) Eos # (Auto) Baso # (Auto) Total Counted Immature Gran % Nucleated RBC % Immature Gran # Segmented Neutrophils Band Neutrophils Lymphocytes Monocytes Basophils Nucleated RBCs # Atypical Lymphocytes Platelet Estimate Giant Platelets Immature Plt Fraction Hypochromasia Poikilocytosis Target Cells Ovalocytes Sodium 139 Potassium 3.3 L Chloride 101 Carbon Dioxide 31 Anion Gap 10.3 BUN 11 Creatinine 0.80 GFR Calculation 105 BUN/Creatinine Ratio 13.00 Glucose 160 H Hemoglobin A1c Calculated Osmolality 278.5 Calcium 8.9 Magnesium 1.8 Troponin I 0.119 H B-Natriuretic Peptide Triglycerides Cholesterol LDL Cholesterol VLDL Cholesterol HDL Cholesterol Heart Disease Risk Ratio Free T4 0.99 TSH 3rd Generation Urine Color Urine Appearance Urine pH Ur Specific [place] Urine Protein Urine Glucose (UA) Urine Ketones Urine Blood Urine Nitrate Urine Bilirubin Urine Urobilinogen Urine Leukocytes Urine RBC Urine WBC Ur Squamous Epith Cells Urine Bacteria Hyaline Casts Urine Mucus Ur Culture Indicated? Quality Measures - Stroke Symptom Onset Unknown: No
[2016-11-25] MEDS ORDERED: ASPIRIN EC 81 MG TABLET PO SCH (11:00)
[2016-11-25] MEDS ORDERED: NEBIVOLOL 5 MG TABLET PO SCH (11:00)
[2016-11-25 11:36] LABS: Troponin I Only 0.107 NG/ML (0.00-0.045)
--- NOTE | 2016-11-25 15:00 | Discharge Summary ---
Hospital Course - Hospital Course Hospital Course: Discharge diagnosis: 1. COPD with acute exacerbation 2. Nicotine addiction The patient presented to the hospital with a COPD exacerbation. She says that she usually manages these at home by going to her local physician in "getting a shot." She says that she has been sick for a few days, but was not able to make it to her local doctor. She describes a cough with a sore throat, wheezing , dyspnea, and clear sputum production. There is no fever. She has had some wheezing. There is no history of any cardiac disease. She was treated for a COPD exacerbation and improved. When I saw the patient on the day after admission, she said that she was ready to go home. She appears to have improved more rapidly than I would have expected based on her presenting complaints. Medication reconciliation has been performed. Regular diet. Activity as tolerated. She already has an appointment to see her local physician This note was completed using [employer] voice recognition software. There may be air quality consultant errors as a result. Specialty Discharge - Follow Up or Referrals Discharge Plan - Discharge Data Disposition: Disch To Home/Self Care Condition at Discharge: Stable Discharge Diet: advance to your usual diet Activity: resume usual activities as tolerated Hygiene: no restrictions - Discharge Medications New Triamcinolone Acetonide [Nasacort Allergy 24HR Nasal [place]] 1 spray BOTH NARES DAILY #11 ml Albuterol Inhaler [Proventil Inhaler] 2 puff INH Q4H PRN #1 inhaler PRN Reason: Shortness Of Breath/Wheezing Continue Budesonide/Formoterol Fumarate [Symbicort 80-4.5 Mcg Inhaler] 1 inhaler INH BID Montelukast Tab [Singulair Tab] 10 mg PO BEDTIME Albuterol Sulfate [Albuterol Neb] 2.5 mg INH BID Linaclotide [Linzess] 145 mcg PO DAILY PRN PRN Reason: Constipation Unknown Neb In Yellow Box 0 ml INH BID - Follow Up or Referral - Forms/Instructions Instructions: Coronary Artery Disease (GEN), Chronic Obstructive Pulmonary Disease (GEN), Cigarette Smoking and Your Health, [place] (GEN), How to Stop Smoking, [place] (GEN), COPD Exacerbation, [place] (GEN) Exam - Constitutional Vitals: Period Temp Pulse Resp BP Sys/Gastelum Pulse Ox Last 24 Hr 96.3 F-98.3 F 70-96 15-22 125-196/76-113 88-99 Vital signs are noted above. Heart is regular with distant tones and no murmur. She has expiratory wheezes and a prolonged expiratory phase. She is awake and alert Discharge Results Procedures and tests throughout hospitalization: Pending Orders 11/24/16 17:55 Blood Culture Stat 11/24/16 17:56 Quick Strep Panel Stat 11/26/16 04:00 BMP w/ Mg [Basic Metabolic Panel w/Mg] IN AM CBC [Comp Blood Count Auto Diff] IN AM 11/27/16 04:00 BMP w/ Mg [Basic Metabolic Panel w/Mg] IN AM CBC [Comp Blood Count Auto Diff] IN AM 11/28/16 04:00 BMP w/ Mg [Basic Metabolic Panel w/Mg] IN AM CBC [Comp Blood Count Auto Diff] IN AM 11/29/16 04:00 BMP w/ Mg [Basic Metabolic Panel w/Mg] IN AM CBC [Comp Blood Count Auto Diff] IN AM Labs on day of discharge: Labs from last 24 hours 11/25/16 11/25/16 11/25/16 10:58 10:58 05:31 WBC RBC Hgb Hct MCV MCH MCHC RDW Plt Count MPV Neut % (Auto) Lymph % (Auto) [place] % (Auto) Eos % (Auto) Baso % (Auto) Neut # (Auto) Lymph # (Auto) [place] # (Auto) Eos # (Auto) Baso # (Auto) Total Counted Immature Gran % Nucleated RBC % Immature Gran # Segmented Neutrophils Band Neutrophils Lymphocytes Monocytes Basophils Nucleated RBCs # Atypical Lymphocytes Platelet Estimate Giant Platelets Immature Plt Fraction Hypochromasia Poikilocytosis Target Cells Ovalocytes D-Dimer, Quantitative 0.6 Sodium 139 Potassium 3.3 L Chloride 101 Carbon Dioxide 31 Anion Gap 10.3 BUN 11 Creatinine 0.80 GFR Calculation 105 BUN/Creatinine Ratio 13.00 Glucose 160 H Hemoglobin A1c Calculated Osmolality 278.5 Calcium 8.9 Magnesium 1.8 Total Creatine Kinase 107 CK-MB (CK-2) 1.5 Troponin I 0.107 H B-Natriuretic Peptide Triglycerides Cholesterol LDL Cholesterol VLDL Cholesterol HDL Cholesterol Heart Disease Risk Ratio Free T4 TSH 3rd Generation Urine Color Urine Appearance Urine pH Ur Specific [place] Urine Protein Urine Glucose (UA) Urine Ketones Urine Blood Urine Nitrate Urine Bilirubin Urine Urobilinogen Urine Leukocytes Urine RBC Urine WBC Ur Squamous Epith Cells Urine Bacteria Hyaline Casts Urine Mucus Ur Culture Indicated? 11/25/16 11/25/16 11/25/16 05:31 02:10 02:10 WBC RBC Hgb Hct MCV MCH MCHC RDW Plt Count MPV Neut % (Auto) Lymph % (Auto) [place] % (Auto) Eos % (Auto) Baso % (Auto) Neut # (Auto) Lymph # (Auto) [place] # (Auto) Eos # (Auto) Baso # (Auto) Total Counted Immature Gran % Nucleated RBC % Immature Gran # Segmented Neutrophils Band Neutrophils Lymphocytes Monocytes Basophils Nucleated RBCs # Atypical Lymphocytes Platelet Estimate Giant Platelets Immature Plt Fraction Hypochromasia Poikilocytosis Target Cells Ovalocytes D-Dimer, Quantitative Sodium 141 Potassium 3.3 L Chloride 100 Carbon Dioxide 33 H Anion Gap 11.3 BUN 11 Creatinine 1.00 GFR Calculation 79 BUN/Creatinine Ratio 11.00 Glucose 247 H Hemoglobin A1c Calculated Osmolality 287.3 Calcium 9.0 Magnesium 1.6 L Total Creatine Kinase CK-MB (CK-2) Troponin I 0.119 H B-Natriuretic Peptide Triglycerides 50 Cholesterol 183 LDL Cholesterol 118.0 VLDL Cholesterol 10.0 HDL Cholesterol 54 Heart Disease Risk Ratio 3.39 Free T4 0.99 TSH 3rd Generation 0.261 L Urine Color Urine Appearance Urine pH Ur Specific [place] Urine Protein Urine Glucose (UA) Urine Ketones Urine Blood Urine Nitrate Urine Bilirubin Urine Urobilinogen Urine Leukocytes Urine RBC Urine WBC Ur Squamous Epith Cells Urine Bacteria Hyaline Casts Urine Mucus Ur Culture Indicated? 11/25/16 11/25/16 11/25/16 02:09 02:09 02:09 WBC RBC Hgb Hct MCV MCH MCHC RDW Plt Count MPV Neut % (Auto) Lymph % (Auto) [place] % (Auto) Eos % (Auto) Baso % (Auto) Neut # (Auto) Lymph # (Auto) [place] # (Auto) Eos # (Auto) Baso # (Auto) Total Counted Immature Gran % Nucleated RBC % Immature Gran # Segmented Neutrophils Band Neutrophils Lymphocytes Monocytes Basophils Nucleated RBCs # Atypical Lymphocytes Platelet Estimate Giant Platelets Immature Plt Fraction Hypochromasia Poikilocytosis Target Cells Ovalocytes D-Dimer, Quantitative Sodium Potassium Chloride Carbon Dioxide Anion Gap BUN Creatinine GFR Calculation BUN/Creatinine Ratio Glucose Hemoglobin A1c 5.5 Calculated Osmolality Calcium Magnesium Total Creatine Kinase CK-MB (CK-2) Troponin I 0.129 H D B-Natriuretic Peptide 18 Triglycerides Cholesterol LDL Cholesterol VLDL Cholesterol HDL Cholesterol Heart Disease Risk Ratio Free T4 TSH 3rd Generation Urine Color Urine Appearance Urine pH Ur Specific [place] Urine Protein Urine Glucose (UA) Urine Ketones Urine Blood Urine Nitrate Urine Bilirubin Urine Urobilinogen Urine Leukocytes Urine RBC Urine WBC Ur Squamous Epith Cells Urine Bacteria Hyaline Casts Urine Mucus Ur Culture Indicated? 11/25/16 11/24/16 11/24/16 02:09 18:29 17:33 WBC 3.9 L D RBC 4.73 Hgb 15.9 Hct 45.4 MCV 96.0 MCH 34 MCHC 35.0 RDW 14.9 Plt Count 192 MPV 11.8 Neut % (Auto) 80.1 H Lymph % (Auto) 18.3 L [place] % (Auto) 1.0 L Eos % (Auto) 0.0 Baso % (Auto) 0.3 Neut # (Auto) 3.1 Lymph # (Auto) 0.7 L [place] # (Auto) 0.0 L Eos # (Auto) 0.0 Baso # (Auto) 0.0 Total Counted 100 Immature Gran % 0.3 Nucleated RBC % 0.0 Immature Gran # 0.01 Segmented Neutrophils 83 Band Neutrophils 1 Lymphocytes 14 L Monocytes 1 L Basophils 1.0 H Nucleated RBCs # 0.00 Atypical Lymphocytes Platelet Estimate Adequate Giant Platelets Few Immature Plt Fraction 0.0 Hypochromasia 1+ Poikilocytosis Target Cells Ovalocytes Slight D-Dimer, Quantitative Sodium Potassium Chloride Carbon Dioxide Anion Gap BUN Creatinine GFR Calculation BUN/Creatinine Ratio Glucose Hemoglobin A1c Calculated Osmolality Calcium Magnesium Total Creatine Kinase CK-MB (CK-2) Troponin I B-Natriuretic Peptide 12 Triglycerides Cholesterol LDL Cholesterol VLDL Cholesterol HDL Cholesterol Heart Disease Risk Ratio Free T4 TSH 3rd Generation Urine Color [place] Urine Appearance Slightly hazy Urine pH 5.0 Ur Specific [place] 1.032 Urine Protein 100 Urine Glucose (UA) Negative Urine Ketones 5 Urine Blood Negative Urine Nitrate Negative Urine Bilirubin Small H Urine Urobilinogen 2.0 H Urine Leukocytes Negative Urine RBC 1 Urine WBC 1 Ur Squamous Epith Cells Occasional Urine Bacteria Occasional Hyaline Casts 5 Urine Mucus Few Ur Culture Indicated? Not indicated 11/24/16 11/24/16 17:33 17:33 WBC 6.3 RBC 5.16 Hgb 17.4 H Hct 50.3 H MCV 97.5 MCH 34 MCHC 34.6 RDW 15.3 Plt Count 207 MPV 11.7 Neut % (Auto) 32.6 L Lymph % (Auto) 58.2 H [place] % (Auto) 8.0 Eos % (Auto) 0.5 Baso % (Auto) 0.5 Neut # (Auto) 2.0 Lymph # (Auto) 3.6 [place] # (Auto) 0.5 Eos # (Auto) 0.0 Baso # (Auto) 0.0 Total Counted 100 Immature Gran % 0.2 Nucleated RBC % 0.0 Immature Gran # 0.01 Segmented Neutrophils 32 L Band Neutrophils Lymphocytes 64 H Monocytes 4 Basophils Nucleated RBCs # 0.00 Atypical Lymphocytes Few Platelet Estimate Adequate Giant Platelets Immature Plt Fraction 0.0 Hypochromasia Poikilocytosis Slight Target Cells Slight Ovalocytes D-Dimer, Quantitative Sodium 140 Potassium 3.9 Chloride 104 Carbon Dioxide 32 Anion Gap 7.9 BUN 9 Creatinine 0.90 GFR Calculation 91 BUN/Creatinine Ratio 10.00 Glucose 114 H Hemoglobin A1c Calculated Osmolality 278.4 Calcium 9.0 Magnesium Total Creatine Kinase CK-MB (CK-2) Troponin I 0.170 H B-Natriuretic Peptide Triglycerides Cholesterol LDL Cholesterol VLDL Cholesterol HDL Cholesterol Heart Disease Risk Ratio Free T4 TSH 3rd Generation Urine Color Urine Appearance Urine pH Ur Specific [place] Urine Protein Urine Glucose (UA) Urine Ketones Urine Blood Urine Nitrate Urine Bilirubin Urine Urobilinogen Urine Leukocytes Urine RBC Urine WBC Ur Squamous Epith Cells Urine Bacteria Hyaline Casts Urine Mucus Ur Culture Indicated? Preliminary micro results at discharge 11/24/16 17:56 Quick Strep Confirmation Culture - Preliminary Throat No Group A Streptococcus isolated. DS: Provider Date of admission: 11/24/16 21:37 Primary care physician: . No PCP Attending physician on admission: Neeraj Shore MD Consults: 11/25/16 05:09 Consult to Physician [CONS] Routine Comment: Consulting Provider: Ashwini Galvan Consult to Specialist Group: Cardiology Person Notified: Romi Date Notified: 11/25/16 Time Notified: 07:40 11/25/16 11:52 Consult to Cardiac Rehabilitation [CONS] Routine Reason for Cardiac Rehabilitation: Other Consult Comment: NSTEMI report Discharging clinician: Scott Garner MD Expected date of discharge: 11/25/16
[2016-11-25 16:57] VITALS: BP 148/95
--- NOTE | 2016-11-25 20:20 | ECHO Report ---
Jose Antonio Muhammad Exam Date: 11/25/2016 11:23 Referring Physician: Technologist: Keysha Saavedra RDCS Age: 61 Ht (in): 67 Wt (lb): 185 Gender: F Exam Location: [facility] Echo Indications: Acute exacerbation COPD, Elevated troponin, Dyspnea, unspecified, Nicotine dependence, cigarettes, uncomplicated BP: 134 / 81 HR: 80 Rhythm: Sinus Technical Quality: Fair IMPRESSIONS Normal LV systolic function, ejection fraction 65-70%. Grade 1/4 diastolic dysfunction consistent with impaired relaxation. Mild concentric left ventricular hypertrophy. Trace to mild mitral and tricuspid regurgitation. MEASUREMENTS (Male / Female) Normal Values 2D ECHO LV Diastolic Diameter PLAX 4.5 cm 4.2 - 5.9 / 3.9 - 5.3 cm LV Systolic Diameter PLAX 2.2 cm LV Fractional Shortening PLAX 51.8 % IVS Diastolic Thickness 1.2 cm 0.6 - 1.0 / 0.6 - 0.9 cm LVPW Diastolic Thickness 1.2 cm 0.6 - 1.0 / 0.6 - 0.9 cm RV Internal Dim ED PLAX 3.4 cm Aortic Root Diameter 3.0 cm LA Systolic Diameter LX 3.7 cm 3.0 - 4.0 / 2.7 - 3.8 cm DOPPLER TR Peak Velocity 289.0 cm/s TR Peak Gradient 33.4 mmHg FINDINGS Left Ventricle Normal left ventricular cavity size. Mild left ventricular hypertrophy. Left ventricular ejection fraction is estimated at 70 %. Right Ventricle The right ventricle is normal in size and function. Right Atrium Normal size. Left Atrium Normal size. Mitral Valve Morphologically normal mitral valve. Trace mitral valve regurgitation. Aortic Valve Morphologically normal aortic valve without significant sclerosis or stenosis. There is no aortic regurgitation. Tricuspid Valve Morphologically normal tricuspid valve. Trace to mild tricuspid valve regurgitation. Tricuspid regurgitation velocities suggest a PAP of 43 mmHg. Pulmonic Valve Morphologically normal pulmonic valve without significant stenosis. There is no pulmonic regurgitation. Pericardium Normal pericardium without effusion. Aorta Normal ascending aorta dimension. Ashwini Galvan MD (Electronically Signed) Final Date: 25 November 2016 20:19
[2016-11-25] MEDS ORDERED: MONTELUKAST 10 MG TABLET PO SCH (21:00)
[2016-11-25] MEDS ORDERED: ENOXAPARIN 40 MG/0.4 ML SYRINGE SUBCUT SCH (21:00)
--- NOTE | 2016-11-25 22:13 | Event Note ---
I went to evaluate the patient at approximately 16:45 and she was already dischared and out of her room. I did not get to interview and examine her personally.
--- NOTE | 2016-11-26 08:28 | Event Note ---
I attempted to revisit the patient yesterday afternoon. However, she had already been discharged home. I was unaware that patient was going to be discharged from the hospital. I have scheduled patient for outpatient stress at the cardiovascular [place] [facility] the [facility]. This will be taken place Tuesday at 1:15. I have called the patient at home and she reports that she will be able to make this appointment. While on the phone, I asked patient how she was doing. She reports that she is doing remarkably better. She is improving daily. She was also given a follow-up with Dr. Molina December 07 at 820 in the morning to review her stress test results. She verbalized understanding of her appointments and reports that she will attend.
--- NOTE | 2016-11-26 08:54 | Physician Query Form ---
CLICK EDIT DOCUMENT TO SELECT QUERY ANSWER --> OK --> SIGN Alicja Lyon RN, CCDS Certified Clinical Newspaper Press Operator Apprentice W) [phone] (f) [phone] [email or web address] PROVIDERS: Make your selection(s) from the choices in EACH section by typing an "x" and enter comments in the comment section. Please use your independent medical judgment in providing your response. This request does not imply that any particular answer is desired or expected. CLINICAL INDICATORS: (Providers should not edit this section) The medical record indicates that the patient was admitted with SOB, wheezing, "acute exacerbation of COPD with asthma" AND will continue " Continue supplemental oxygen, steroids, breathing treatments and antibiotics". Based on documentation of Asthma, can you please provide further specificity regarding the diagnosis? ( x) Mild intermittent extrinsic asthma with acute exacerbation ( ) Mild persistent extrinsic asthma with acute exacerbation ( ) Moderate persistent extrinsic asthma with acute exacerbation ( ) Severe persistent extrinsic asthma with acute exacerbation ( ) Mild intermittent extrinsic asthma with status asthmaticus ( ) Mild persistent extrinsic asthma with status asthmaticus ( ) Moderate persistent extrinsic asthma with status asthmaticus ( ) Severe intermittent extrinsic asthma with status asthmaticus ( ) Other, please specify: ( ) Clinically unable to determine COMMENTS: PLEASE ALSO DOCUMENT RESPONSE IN PROGRESS NOTES AND/OR DISCHARGE SUMMARY Use of terms such as suspected, likely, or probable (associated with a specific diagnosis that is being evaluated, monitored, or treated as if it exists) are acceptable and can be restated in the discharge summary if not ruled out. MTDD
--- NOTE | 2016-11-26 09:00 | Physician Query Form ---
CLICK EDIT DOCUMENT TO SELECT QUERY ANSWER --> OK --> SIGN Alicja Lyon RN, CCDS Certified Clinical Front Desk Administrator W) [phone] (f) [phone] [email or web address] PROVIDERS: Make your selection(s) from the choices in EACH section by typing an "x" and enter comments in the comment section. Please use your independent medical judgment in providing your response. This request does not imply that any particular answer is desired or expected. CLINICAL INDICATORS: (Providers should not edit this section) The below diagnosis was documented in the record, but is not consistently noted in subsequent documentation. The medical record indicates that the patient was admitted with COPD exacerbation, on the 6th: Sepsis is mentioned, "Initially in ED, temp 96.3, HR 94, and RR 22 with possible pulmonary infection on CXR", normal WBC on admission and the patient was placed on antibiotics. Diagnosis: Sepsis Please clarify the following: ( ) The above diagnosis was monitored, evaluated, and/or treated and is a confirmed diagnosis ( x) The above diagnosis was ruled out ( ) The above diagnosis is still a likely, suspected, probable diagnosis ( ) Other, please specify: ( ) Clinically unable to determine COMMENTS: PLEASE ALSO DOCUMENT RESPONSE IN PROGRESS NOTES AND/OR DISCHARGE SUMMARY Use of terms such as suspected, likely, or probable (associated with a specific diagnosis that is being evaluated, monitored, or treated as if it exists) are acceptable and can be restated in the discharge summary if not ruled out. MTDD
== END 2016-11-25 17:20 | disposition home or self-care (01) | DRG 191 ==
LOC: N.ED 17:13 → SUATTDRO 21:37 → N.EDINP 21:37 → N.5E 22:36 → N.TELEN 11-25 03:45
PROVIDERS: ADMIT Family Medicine; ATTEND Internal Medicine Geriatric Medicine

== ENCOUNTER 2021-03-08 11:08 | Inpatient (IN) ==
[2021-03-08] MEDS ORDERED: LEVALBUTEROL 1.25 MG/3 ML NEB RESP TX STA (11:47)
[2021-03-08] MEDS ORDERED: methylPREDNISolone SOD SUC 125 MG/2 ML VIAL IV STA (12:07)
[2021-03-08 12:49] LABS: Basophils % 0.4 % (0.0-0.8); Eosinophils % 0.4 % (0.00-10.9); Hematocrit 36.2 VOL% (35.7-47.0); Hemoglobin 10.9 GM/DL (12.0-16.0); Immature Granulocytes % 1.1 %; Immature Granulocytes Absolute 0.11 #; Lymphocytes # 4.5 10*3/uL (1.4-4.0); Lymphocytes % 45.2 % (21.3-54.2); Mean Corpuscular HGB Conc 30.1 GM/DL (32-36); Mean Corpuscular Volume 83.2 FL (87-102); Mean Platelet Volume 11.4 FL (9.6-12.0); Monocytes % 7.3 % (1.7-12.7); NRBC # 0.02 10*3/uL; Neutrophils % 45.6 % (38.7-73.9); Platelet Count 312 T/CUMM (130-400); Red Blood Count 4.35 MC/CUMM (3.8-5.5)
[2021-03-08 13:03] LABS: Alanine Aminotransferase 23 U/L (13-56); Albumin 3.8 G/DL (3.4-5.0); Alkaline Phosphatase 93 U/L (45-117); Aspartate Amino Transferase 10 U/L (0-37); Bilirubin,Total < 0.39 MG/DL (0.20-1.00); Blood Urea Nitrogen 10 MG/DL (7-18); Calcium 9.1 MG/DL (8.5-10.1); Carbon Dioxide 27 MMOL/L (21-32); Estimated Glom Filtration Rate 109 ML/MIN; Glucose 88 MG/DL (74-106); Osmolality,Calculated 280.1 MOS/KG (273-304); Potassium 3.3 MMOL/L (3.5-5.1); Sodium 142 MMOL/L (136-145); Total Protein 8.3 G/DL (6.4-8.2)
[2021-03-08 13:15] LABS: Anisocytosis 2+; Band Neutrophils 1 % (0-10); Burr Cells Few; Lymphocytes 53 % (20-55); Macrocytosis 1+; Nucleated Red Blood Cells 1 (0-5); Ovalocytes Few; Platelet Estimate Normal; Segmented Neutrophils 36 % (50-85); Total Cells Counted 100
[2021-03-08] MEDS ORDERED: POTASSIUM CHLORIDE 20 MEQ TABLET PO STA (13:40)
[2021-03-08] MEDS ORDERED: ACETAMINOPHEN 325 MG TABLET PO PRN (14:29)
[2021-03-08] MEDS ORDERED: GLUCAGON 1 MG VIAL IM PRN (14:29)
[2021-03-08] MEDS ORDERED: hydrALAZINE 20 MG/1 ML VIAL IV PRN (14:29)
[2021-03-08] MEDS ORDERED: NICOTINE 21 MG/24 HR PATCH TRANSDERM PRN (14:29)
[2021-03-08] MEDS ORDERED: DEXTROSE 50% 25 GM/50 ML SYRINGE IV PRN (14:29)
[2021-03-08] MEDS ORDERED: ONDANSETRON 4 MG/2 ML VIAL IV PRN (14:29)
[2021-03-08] MEDS ORDERED: MAGNESIUM SULF RIDER 4 GM/100 ML PREMIX IV PRN (14:32)
[2021-03-08] MEDS ORDERED: MAGNESIUM SULF RIDER 2 GM/50 ML PREMIX IV PRN (14:32)
[2021-03-08] MEDS: cefTRIAXone 1,000 MG in SODIUM CHLORIDE 0.9% 100 ML IV SCH (15:52)
[2021-03-08] MEDS: ENOXAPARIN 40 MG/0.4 ML SYRINGE SUBCUT SCH (15:52)
[2021-03-08] MEDS: SODIUM CHLORIDE 0.9% 1,000 ML IV SCH (16:58)
[2021-03-08] MEDS: MONTELUKAST 10 MG TABLET PO SCH (17:16)
[2021-03-08] MEDS: AZITHROMYCIN INJ 500 MG in SODIUM CHLORIDE 0.9% 250 ML IV SCH (17:17)
[2021-03-08] MEDS: ALBUTEROL/IPRATROPIUM 3 ML NEB RESP TX SCH (20:12)
[2021-03-08] MEDS: FLUTICASONE 50 MCG NASAL SPRAY 16 GM BOTTLE BOTH NARES SCH (20:53)
[2021-03-08] MEDS: BUDESONIDE/FORMOTEROL 160-4.5 INHALER 6 GM INH SCH (20:53)
[2021-03-08] MEDS: ASPIRIN EC 81 MG TABLET PO SCH (21:03)
[2021-03-08] MEDS: guaiFENesin/DM ER 600-30 MG TABLET PO PRN (21:03)
[2021-03-08] MEDS: cilostazoL 50 MG TABLET PO SCH (21:03)
[2021-03-08] MEDS: PREGABALIN 50 MG CAPSULE PO SCH (21:03)
[2021-03-08] MEDS: POTASSIUM CHLORIDE 20 MEQ TABLET PO PRN ×2 (21:03→23:33)
[2021-03-08] MEDS: ROSUVASTATIN 20 MG TABLET PO SCH (21:03)
[2021-03-08] MEDS: methylPREDNISolone SOD SUC 40 MG/1 ML VIAL IV SCH (21:04)
[2021-03-08] MEDS: traMADol 50 MG TABLET PO PRN (21:04)
[2021-03-09] MEDS: ALBUTEROL/IPRATROPIUM 3 ML NEB RESP TX SCH ×4 (00:11→20:15)
[2021-03-09] MEDS: POTASSIUM CHLORIDE 20 MEQ TABLET PO PRN (02:03)
[2021-03-09] MEDS: methylPREDNISolone SOD SUC 40 MG/1 ML VIAL IV SCH ×3 (04:24→20:45)
[2021-03-09] MEDS: SODIUM CHLORIDE 0.9% 1,000 ML IV SCH ×2 (04:24→16:11)
[2021-03-09 07:16] LABS: Basophils % 0.1 % (0.0-0.8); Hematocrit 32.2 VOL% (35.7-47.0); Hemoglobin 9.9 GM/DL (12.0-16.0); Immature Granulocytes % 0.5 %; Immature Granulocytes Absolute 0.04 #; Lymphocytes # 1.2 10*3/uL (1.4-4.0); Lymphocytes % 14.6 % (21.3-54.2); Mean Corpuscular HGB Conc 30.7 GM/DL (32-36); Mean Corpuscular Volume 81.9 FL (87-102); Mean Platelet Volume 10.8 FL (9.6-12.0); Neutrophils % 81.8 % (38.7-73.9); Platelet Count 301 T/CUMM (130-400); Red Blood Count 3.93 MC/CUMM (3.8-5.5); Red Cell Distribution Width 18.6 % (9.3-17.3); White Blood Count 8.4 T/CUMM (4-12)
[2021-03-09 07:33] LABS: Calcium 8.6 MG/DL (8.5-10.1); Osmolality,Calculated 277.5 MOS/KG (273-304); Potassium 4.4 MMOL/L (3.5-5.1)
[2021-03-09] MEDS: FLUTICASONE 50 MCG NASAL SPRAY 16 GM BOTTLE BOTH NARES SCH ×2 (08:59→20:46)
[2021-03-09] MEDS: cilostazoL 50 MG TABLET PO SCH ×2 (09:00→20:46)
[2021-03-09] MEDS: MONTELUKAST 10 MG TABLET PO SCH (09:00)
[2021-03-09] MEDS: BUDESONIDE/FORMOTEROL 160-4.5 INHALER 6 GM INH SCH ×2 (09:00→20:46)
[2021-03-09] MEDS: PREGABALIN 50 MG CAPSULE PO SCH ×2 (09:00→20:46)
[2021-03-09] MEDS: LINACLOTIDE 145 MCG CAPSULE PO SCH (09:00)
[2021-03-09] MEDS: CLOPIDOGREL 75 MG TABLET PO SCH (09:00)
[2021-03-09] MEDS: traMADol 50 MG TABLET PO PRN (09:10)
[2021-03-09] MEDS: cefTRIAXone 1,000 MG in SODIUM CHLORIDE 0.9% 100 ML IV SCH (15:41)
[2021-03-09] MEDS: ENOXAPARIN 40 MG/0.4 ML SYRINGE SUBCUT SCH (15:41)
[2021-03-09] MEDS: AZITHROMYCIN INJ 500 MG in SODIUM CHLORIDE 0.9% 250 ML IV SCH (15:45)
[2021-03-09] MEDS: ASPIRIN EC 81 MG TABLET PO SCH (20:46)
[2021-03-09] MEDS: ROSUVASTATIN 20 MG TABLET PO SCH (20:46)
[2021-03-10] MEDS: ALBUTEROL/IPRATROPIUM 3 ML NEB RESP TX SCH ×4 (01:00→19:45)
[2021-03-10] MEDS: methylPREDNISolone SOD SUC 40 MG/1 ML VIAL IV SCH ×3 (05:24→21:31)
[2021-03-10] MEDS: SODIUM CHLORIDE 0.9% 1,000 ML IV SCH ×3 (05:25→21:32)
[2021-03-10 06:37] LABS: Hematocrit 32.3 VOL% (35.7-47.0); Immature Granulocytes % 0.5 %; Immature Granulocytes Absolute 0.05 #; Lymphocytes # 1.3 10*3/uL (1.4-4.0); Lymphocytes % 14.2 % (21.3-54.2); Mean Platelet Volume 11.6 FL (9.6-12.0); NRBC # 0.02 10*3/uL; Neutrophils % 80.3 % (38.7-73.9); Platelet Count 316 T/CUMM (130-400); Red Blood Count 3.99 MC/CUMM (3.8-5.5); Red Cell Distribution Width 18.6 % (9.3-17.3); White Blood Count 9.3 T/CUMM (4-12)
[2021-03-10 07:08] LABS: Calcium 8.8 MG/DL (8.5-10.1); Osmolality,Calculated 285.1 MOS/KG (273-304); Potassium 4.1 MMOL/L (3.5-5.1)
[2021-03-10] MEDS: LINACLOTIDE 145 MCG CAPSULE PO SCH (08:11)
[2021-03-10] MEDS: PREGABALIN 50 MG CAPSULE PO SCH ×2 (09:47→21:36)
[2021-03-10] MEDS: CLOPIDOGREL 75 MG TABLET PO SCH (09:47)
[2021-03-10] MEDS: MONTELUKAST 10 MG TABLET PO SCH (09:47)
[2021-03-10] MEDS: FLUTICASONE 50 MCG NASAL SPRAY 16 GM BOTTLE BOTH NARES SCH ×2 (09:47→21:32)
[2021-03-10] MEDS: BUDESONIDE/FORMOTEROL 160-4.5 INHALER 6 GM INH SCH ×2 (09:47→21:32)
[2021-03-10] MEDS: cilostazoL 50 MG TABLET PO SCH ×2 (09:47→21:26)
[2021-03-10] MEDS: guaiFENesin/DM ER 600-30 MG TABLET PO PRN ×2 (09:49→21:29)
[2021-03-10] MEDS: cefTRIAXone 1,000 MG in SODIUM CHLORIDE 0.9% 100 ML IV SCH (15:08)
[2021-03-10] MEDS: ENOXAPARIN 40 MG/0.4 ML SYRINGE SUBCUT SCH (15:11)
[2021-03-10] MEDS: AZITHROMYCIN INJ 500 MG in SODIUM CHLORIDE 0.9% 250 ML IV SCH (16:42)
[2021-03-10] MEDS: ROSUVASTATIN 20 MG TABLET PO SCH (21:26)
[2021-03-10] MEDS: ASPIRIN EC 81 MG TABLET PO SCH (21:29)
[2021-03-10] MEDS: traMADol 50 MG TABLET PO PRN (21:29)
[2021-03-11] MEDS: ALBUTEROL/IPRATROPIUM 3 ML NEB RESP TX SCH ×4 (02:40→20:09)
[2021-03-11] MEDS: methylPREDNISolone SOD SUC 40 MG/1 ML VIAL IV SCH ×3 (04:59→22:28)
[2021-03-11 06:03] LABS: Basophils % 0.1 % (0.0-0.8); Hematocrit 31.9 VOL% (35.7-47.0); Hemoglobin 9.9 GM/DL (12.0-16.0); Immature Granulocytes % 2.2 %; Immature Granulocytes Absolute 0.21 #; Lymphocytes # 1.5 10*3/uL (1.4-4.0); Lymphocytes % 15.5 % (21.3-54.2); Mean Corpuscular Volume 79.8 FL (87-102); Monocytes % 3.9 % (1.7-12.7); NRBC # 0.02 10*3/uL; Neutrophils % 78.3 % (38.7-73.9); Platelet Count 313 T/CUMM (130-400); Red Cell Distribution Width 18.4 % (9.3-17.3); White Blood Count 9.7 T/CUMM (4-12)
[2021-03-11 06:31] LABS: Osmolality,Calculated 282.3 MOS/KG (273-304); Potassium 3.8 MMOL/L (3.5-5.1)
[2021-03-11] MEDS: BUDESONIDE/FORMOTEROL 160-4.5 INHALER 6 GM INH SCH ×2 (10:06→21:39)
[2021-03-11] MEDS: FLUTICASONE 50 MCG NASAL SPRAY 16 GM BOTTLE BOTH NARES SCH ×2 (10:06→21:39)
[2021-03-11] MEDS: MONTELUKAST 10 MG TABLET PO SCH (10:06)
[2021-03-11] MEDS: cilostazoL 50 MG TABLET PO SCH ×2 (10:07→21:36)
[2021-03-11] MEDS: CLOPIDOGREL 75 MG TABLET PO SCH (10:07)
[2021-03-11] MEDS: PREGABALIN 50 MG CAPSULE PO SCH ×2 (10:07→21:36)
[2021-03-11] MEDS: AZITHROMYCIN 250 MG TABLET PO SCH (10:07)
[2021-03-11] MEDS: SODIUM CHLORIDE 0.9% 1,000 ML IV SCH (10:08)
[2021-03-11] MEDS: cefTRIAXone 1,000 MG in SODIUM CHLORIDE 0.9% 100 ML IV SCH (10:08)
[2021-03-11] MEDS: LINACLOTIDE 145 MCG CAPSULE PO SCH (10:10)
[2021-03-11] MEDS: ROSUVASTATIN 20 MG TABLET PO SCH (21:36)
[2021-03-11] MEDS: ASPIRIN EC 81 MG TABLET PO SCH (21:36)
[2021-03-11] MEDS: ENOXAPARIN 40 MG/0.4 ML SYRINGE SUBCUT SCH (21:37)
[2021-03-11] MEDS: guaiFENesin/DM ER 600-30 MG TABLET PO PRN (21:39)
[2021-03-11] MEDS: traMADol 50 MG TABLET PO PRN (22:07)
[2021-03-12] MEDS: SODIUM CHLORIDE 0.9% 1,000 ML IV SCH (01:28)
[2021-03-12] MEDS: ALBUTEROL/IPRATROPIUM 3 ML NEB RESP TX SCH ×3 (02:48→13:45)
[2021-03-12 04:59] LABS: Basophils % 0.1 % (0.0-0.8); Hematocrit 32.2 VOL% (35.7-47.0); Hemoglobin 10.1 GM/DL (12.0-16.0); Immature Granulocytes % 1.5 %; Immature Granulocytes Absolute 0.13 #; Lymphocytes # 1.7 10*3/uL (1.4-4.0); Lymphocytes % 19.8 % (21.3-54.2); Mean Corpuscular HGB Conc 31.4 GM/DL (32-36); Mean Corpuscular Volume 80.1 FL (87-102); Mean Platelet Volume 11.1 FL (9.6-12.0); Monocytes % 6.1 % (1.7-12.7); NRBC # 0.03 10*3/uL; Neutrophils % 72.5 % (38.7-73.9); Platelet Count 309 T/CUMM (130-400); Red Blood Count 4.02 MC/CUMM (3.8-5.5); Red Cell Distribution Width 18.3 % (9.3-17.3); White Blood Count 8.7 T/CUMM (4-12)
[2021-03-12 05:28] LABS: Calcium 8.7 MG/DL (8.5-10.1); Osmolality,Calculated 284.3 MOS/KG (273-304); Potassium 3.8 MMOL/L (3.5-5.1)
[2021-03-12] MEDS: methylPREDNISolone SOD SUC 40 MG/1 ML VIAL IV SCH ×2 (05:43→12:11)
[2021-03-12] MEDS: MONTELUKAST 10 MG TABLET PO SCH (09:11)
[2021-03-12] MEDS: LINACLOTIDE 145 MCG CAPSULE PO SCH (09:11)
[2021-03-12] MEDS: cilostazoL 50 MG TABLET PO SCH (09:12)
[2021-03-12] MEDS: CLOPIDOGREL 75 MG TABLET PO SCH (09:12)
[2021-03-12] MEDS: AZITHROMYCIN 250 MG TABLET PO SCH (09:12)
[2021-03-12] MEDS: BUDESONIDE/FORMOTEROL 160-4.5 INHALER 6 GM INH SCH (09:14)
[2021-03-12] MEDS: FLUTICASONE 50 MCG NASAL SPRAY 16 GM BOTTLE BOTH NARES SCH (09:14)
[2021-03-12] MEDS: PREGABALIN 50 MG CAPSULE PO SCH (09:15)
[2021-03-12] MEDS: cefTRIAXone 1,000 MG in SODIUM CHLORIDE 0.9% 100 ML IV SCH (09:17)
[2021-03-12] MEDS: guaiFENesin/DM ER 600-30 MG TABLET PO PRN (14:43)
[2021-03-12 15:27] VITALS: BP 157/89
== END 2021-03-12 16:42 | disposition home or self-care (01) | DRG 190 ==
LOC: N.EDINP 11:08 → N.ED 11:08 → N.5E 16:47 → SUATTDRO 03-09 09:53
PROVIDERS: ADMIT Internal Medicine; ATTEND Internal Medicine

== ENCOUNTER 2021-06-11 10:40 | Day surgery (SDC) ==
[~2021-06-11 10:40] MED LIST: ASPIRIN 325 MG TABLET PO ONE; DIAZEPAM 5 MG TABLET PO ONE; MAGNESIUM SULF RIDER 2 GM/50 ML PREMIX IV PRN; POTASSIUM CHLORIDE RIDER 10 MEQ/100 ML PREMIX IV PRN; SODIUM CHLORIDE 0.9% 1,000 ML IV SCH; diphenhydrAMINE CAP 50 MG CAPSULE PO ONE
[2021-06-11 11:20] VITALS: BP 120/84
[2021-06-11] MEDS ORDERED: diphenhydrAMINE CAP 50 MG CAPSULE ONE (11:36)
[2021-06-11] MEDS ORDERED: ASPIRIN 325 MG TABLET ONE (11:36)
[2021-06-11] MEDS ORDERED: DIAZEPAM 5 MG TABLET ONE (11:36)
[2021-06-11] MEDS ORDERED: MIDAZOLAM 2 MG/2 ML VIAL ONE (14:44)
[2021-06-11] MEDS ORDERED: HYDROmorphone 1 MG/1 ML SYRINGE ONE (14:44)
== END 2021-06-11 18:38 | disposition home or self-care (01) ==
LOC: N.CL 10:40 → N.3E 10:40 → N.CL 10:48 → N.3E 15:47 → N.CL 18:38
PROVIDERS: ATTEND Internal Medicine Cardiovascular Disease